=== PATIENT | male | born 1990 | race Caucasian/White ===

== ENCOUNTER 2022-06-20 09:13 | Emergency (ER) | payer MEDICARE, MEDICAID, SELFPAY ==
[2022-06-20 09:18] VITALS: BP 134/76; PULSE 84; RESP 18; TEMP 36.7; O2SAT 99
[2022-06-20] MEDS: Ketorolac 15 MG/ML VIAL IM (09:55)
[2022-06-20] MEDS: Dexamethasone 10 MG/ML VIAL IM (09:56)
--- NOTE | 2022-06-20 09:56 | ED.GENADUL_ITS ---
Discharge Plan Disposition Patient Disposition: Home Condition: Improving Discharge Details Chief Complaint: Nk/Back Pain Clinical Impression: Back pain Primary Care Provider: Unknown,Unknown ED Provider: Sergio Larson Home Meds and New Rx's Prescriptions: No Action acetaminophen [Tylenol] 325 mg Capsule 1,000 mg PO Q4H Discharge Instructions Instructions: Back Pain (ED) Additional Instructions: Please return tomorrow at 11 AM for check-in with radiology department for your MRI. You will follow-up immediately after MRI in the emergency department for your results. We have put you on a list for scheduling with [facility] negative you could order it is like a medical supply that is well [employer] she is complaining of her gallbladder out. Please return to the emergency department for any worsening symptoms versus MRI screening form reviewed 11 AM tomorrow met with dad and Medical Decision Making 31-year-old male presents with atraumatic lower back discomfort and intermittent paresthesia to left foot over the past year, denies definitive injury, no fevers chills or infectious symptoms, no midline spinal tenderness, patient is afebrile nontoxic full range of motion and full strength bilateral lower extremities, patient did have brief paresthesia sensation to perineum approximately 1 to 2 weeks ago lasting less than a couple of minutes, no further perineal symptoms, no bowel or bladder dysfunction, patient is able to ambulate no falls, high clinical suspicion for bulging lumbar disc no evidence of acute cauda equina at this time lower suspicion for spinal epidural abscess or hematoma given history and physical. Patient would benefit from MRI however today being a holiday MRIs not available, will connect patient to spine clinic at [facility] will arrange for outpatient imaging/return visit for MRI. Given home care instructions and return precautions. Analgesia anti-inflammatory. 11: 02 patient resting comfortably getting some relief from medications. Have discussed case with radiology department as MRIs not available today we will schedule him for 11 AM check-in at MRI tomorrow he will follow-up for results in the emergency department. Patient will also be given referral to spine clinic at [facility]. Given home care instructions and return precautions for worsening symptoms. Sign Out No HPI General Date/Time Provider Initiated Documentation: 06/20/22 09:14 . HPI Narrative: 32-year-old male presents with approximately 1 year of lower back discomfort and paresthesia/numbness to his left foot, denies any definitive traumatic injury however works in [employer] and is very active, denies bowel or bladder discomfort however did have a brief event of paresthesia involving a small portion of his perineum that lasted several minutes and resolved completely no current perineal symptoms. Related Data Home Medications Medication Instructions Recorded Confirmed acetaminophen 325 mg capsule 1,000 mg PO Q4H 06/20/22 06/20/22 (Tylenol) Allergies Allergy/AdvReac Type Severity Reaction Status Date / Time shellfish derived Allergy Severe Unverified 06/20/22 09:24 levetiracetam [From Keppra] Allergy Mild itching,hiv Unverified 11/15/12 10:58 es General Stated Complaint: Nk/Back Pain YANELY: 4 Review of Systems Narrative: Review of Systems Constitutional: negative Eyes: negative ENT: negative Cardiovascular: negative Respiratory: negative Gastrointestinal: negative : negative Musculoskeletal: negative Skin: negative Neurologic: Paresthesias Psych: negative PFSH All Active Problems (Updated 06/20/22 @ 11:07 by Sergio Larson MD) Back pain (Acute) Social History Smoking/Tobacco Use Status: Current every day Tobacco Type: cigarettes Smoking risk assessment performed?: Yes Alcohol Intake: former Drug use: Occasionally Substance use type: does not use Do you feel safe at home: Yes Do you feel safe in your relationship?: Yes Exam Narrative Exam Narrative: Physical Examination General: alert, awake, cooperative, resting comfortably, no acute distress HEENT: normocephalic, atraumatic; PERRL, EOM intact, conjunctiva normal; no nasal discharge; moist mucous membranes, oral and pharyngeal mucosa normal, tolerating secretions Neck: supple, trachea midline; full ROM Chest: normal to inspection Respiratory: normal respiratory effort, speaking in full sentences, clear to auscultation, no wheezing, rales or rhonchi Cardiac: regular rate, regular rhythm, S1S2 intact, no murmurs rubs or gallops GI: abdomen soft, non-tender, non-distended; no palpable mass or hepatosplenomegaly Back: No midline spinal tenderness Skin: no lesions, rashes or trauma appreciated Neuro: AAOx3, normal speech, moving all extremities; 5/5 strength bilateral lower extremities, sensation intact Extremities: Full range of motion bilateral lower extremities; reproduction of back discomfort with movement Psych: Appropriate mood and affect Course Vital Signs Vital signs: Vital Signs Temperature 36.7 C 06/20/22 09:18 Pulse 84 06/20/22 09:18 Respiratory Rate 18 06/20/22 09:18 Blood Pressure 134/76 06/20/22 09:18 Pulse Oximetry 99 06/20/22 09:18 Temperature 36.7 C 06/20/22 09:18 Pulse 84 06/20/22 09:18 Respiratory Rate 18 06/20/22 09:18 Respiratory Effort Non-Labored 06/20/22 09:21 Blood Pressure 134/76 06/20/22 09:18 Blood Pressure Position Supine 06/20/22 09:18 Pulse Oximetry 99 06/20/22 09:18 Oxygen Delivery Method Room Air 06/20/22 09:18 Oxygen Flow Rate 0 06/20/22 09:18 Pain Level 10 06/20/22 09:18
[2022-06-20] MEDS: Cyclobenzaprine 10 MG TAB PO (09:57)
[2022-06-20] MEDS: Lidocaine 5% Patch 1 PATCH TP (09:57)
--- NOTE | 2022-06-20 11:03 | NUR.NOTE ---
Nursing Note:REFFERAL TO CM FOR PCP AND SPINE CLINIC AT [facility]
--- NOTE | 2022-06-20 18:53 | NUR.NOTE ---
Requisition and MRI Protocol Sheet faxed to [facility] for MRI 06/21/22. Reason for test is back pain with L LE paresthesia.Nursing Note:
== END 2022-06-20 11:12 | disposition home or self-care (01) ==
PROVIDERS: Emergency Provider Emergency Medicine
DX: M54.50 Low back pain, unspecified (principal); M79.605 Pain in left leg; R20.2 Paresthesia of skin
CPT/HCPCS: 96372; 99284; 99283; J1100; J1885

== ENCOUNTER 2022-06-24 13:13 | Emergency (ER) | payer MEDICARE, MEDICAID, SELFPAY ==
--- NOTE | 2022-06-24 13:17 | ED.GENADUL_ITS ---
Discharge Plan Disposition Patient Disposition: Home Condition: Good Discharge Details Clinical Impression: Herniated lumbar intervertebral disc Primary Care Provider: Unknown,Unknown ED Provider: Ozzie Bedolla Home Meds and New Rx's Prescriptions: New prednisone 50 mg tablet 50 mg PO DAILY Qty: 5 0RF lidocaine [Lidoderm] 5 % adhesive patch,medicated 1 patch Topical Q24H Qty: 15 0RF cyclobenzaprine 10 mg tablet 10 mg PO TID Qty: 14 0RF No Action acetaminophen [Tylenol] 325 mg Capsule 1,000 mg PO Q4H Discharge Instructions Instructions: Lumbar Radiculopathy (ED) Additional Instructions: At this time the MRI shows evidence of a disc herniation with some pressure on some of the nerves. This can cause significant pain and take a fair bit of time to heal. I expect 1 to 2 months for potential resolution. In the meantime do not lift anything greater than 5 pounds for the next 2 weeks. Avoid any significant vigorous physical activity. Perform easy gentle regular activities at home without any significant bending or lifting. Please take the steroids as directed. You have been given a prescription for Lidoderm patch. If your insurance does not cover this you can get [id number] Lidoderm patches at 4% which are almost just as effective. Please take the Flexeril as directed but do not take it when driving or operating any vehicles or heavy machinery, swimming, taking long baths, or operating firearms. Please use a heating pad as often as possible on your back. Perform daily gentle stretches on your back. Please continue to take the Tylenol and Motrin. You can take 1000 mg of Tylenol every 6 hours and 600 mg of ibuprofen every 6 hours. If you notice any worsening of your symptoms, or any new symptoms such as vomiting, diarrhea, fever, chills, shortness of breath, chest pain, numbness or tingling in your groin or legs, weakness in your legs, loss of control for your bowels or bladder, or fainting , please return immediately to the emergency department for reevaluation. Please follow up with your primary care provider as soon as possible for reassessment and reevaluation. As always, it was a pleasure participating in your medical care today. We have placed a referral with our physical therapist and they will contact you for an appointment time. Additionally [facility] spine hauula would like you to call their office at [phone] after you completed the medications and still would like evaluation. Stand Alone Forms: Physical Therapy Referral Medical Decision Making This is a 32-year-old male who presented last night for atraumatic low back discomfort with intermittent paresthesias in the left foot over the past year. He did not recall any definitive injury. No fever or chills. No midline spinal tenderness on his exam last night. Because of the time and the holiday the patient was discharged with plan for MRI on an outpatient basis with ER follow-up. MRI was just performed, and the patient was brought back to the ER for further assessment. He has no complaints at this time is feeling well and is resting comfortably. Patient had no clinical evidence of cauda equina syndrome at time of discharge. MRI demonstrates large disc herniation at L5-S1, with extrusion of disc material impinging on the left-sided nerve roots. Exam was performed here and shows no signs of cauda equina syndrome. No evidence of an acute urinary retention or bowel or bladder incontinence. Patient is stable otherwise. Symptoms have been going on for quite some time. I contacted [facility] and discussed the case with neurosurgery Dr. Alcazar, she recommends steroids, muscle relaxants, NSAIDs, and physical therapy. She did give the clinic phone number for follow- up and recommends the patient call it if he has persistent symptoms after treatment. Patient at this time shows no evidence of acute life-threatening etiology requiring emergent surgical intervention. Neurosurgery does not see any additional need for emergent surgical intervention after review of the imaging. I have extensively reviewed the treatment plan and discharge instructions with the patient. I have addressed all patient concerns at this kira e. The patient was made aware of what symptoms to monitor for that would warrant a return to the emergency department. Discussed the plan with the patient, they demonstrate verbal understanding and agreement with our assessment and plan at this time. The documentation in this chart was dictated using [employer] dictation software. Please excuse any dictation errors. FINDINGS: Bones: The last intervertebral disc space is designated the L5/S1 level for the numbering purpose of this examination. The vertebral body heights are well maintained. Alignment is satisfactory. The marrow signal characteristics are unremarkable. Cord: The conus tip ends at the T12 level. It is of normal size and signal intensity. T12-L1: No disc herniations or bulges are present. No central spinal canal or ne ural foraminal stenosis. L1-2: No disc herniations or bulges are present. No central spinal canal or neural foraminal stenosis. L2-3: No disc herniations or bulges are present. No central spinal canal or neural foraminal stenosis. L3-4: No disc herniations or bulges are present. No central spinal canal or neural foraminal stenosis. L4-5: Minimal disc bulging. No central spinal canal or neural foraminal stenosis. L5-S1: Disc height is normal. Partial disc desiccation. Small endplate osteophytes. Large central disc protrusion with focal area of extruded disc material left paracentral, impinging on the adjacent nerve roots. No central spinal canal or neural foraminal stenosis. The visualized SI joints and sacrum are well maintained. Soft tissues: The paraspinal soft tissues are unremarkable. IMPRESSION: Large disc herniation at L5-S1 with extruded disc material impinging on left- sided nerve roots. Findings discussed with emergency department provider. Sign Out No HPI General Date/Time Provider Initiated Documentation: 06/24/22 13:17 . HPI Narrative: This is a 32-year-old male who presented last night for atraumatic low back discomfort with intermittent paresthesias in the left foot over the past year. He did not recall any definitive injury. No fever or chills. No midline spinal tenderness on his exam last night. Because of the time and the holiday the patient was discharged with plan for MRI on an outpatient basis with ER follow-up. MRI was just performed, and the patient was brought back to the ER for further assessment. He has no complaints at this time is feeling well and is resting comfortably. Related Data Home Medications Medication Instructions Recorded Confirmed acetaminophen 325 mg capsule 1,000 mg PO Q4H 06/20/22 06/20/22 (Tylenol) cyclobenzaprine 10 mg tablet 10 mg PO TID #14 tabs 06/24/22 lidocaine 5 % topical patch 1 patch topical Q24H #15 ea 06/24/22 (Lidoderm) prednisone 50 mg tablet 50 mg PO DAILY #5 tabs 06/24/22 Previous Rx's Medication Instructions Recorded cyclobenzaprine 10 mg tablet 10 mg PO TID #14 tabs 06/24/22 lidocaine 5 % topical patch 1 patch topical Q24H #15 ea 06/24/22 (Lidoderm) prednisone 50 mg tablet 50 mg PO DAILY #5 tabs 06/24/22 Allergies Allergy/AdvReac Type Severity Reaction Status Date / Time shellfish derived Allergy Severe Unverified 06/20/22 09:24 levetiracetam [From Keppra] Allergy Mild itching,hiv Unverified 11/15/12 10:58 es General YANELY: 4 Review of Systems All systems reviewed & are unremarkable except as noted in HPI and below PFSH All Active Problems (Updated 06/24/22 @ 14:05 by Ozzie Bedolla DO) Back pain (Acute) Herniated lumbar intervertebral disc (Acute) Social History Smoking/Tobacco Use Status: Current every day Tobacco Type: cigarettes Smoking risk assessment performed?: Yes Alcohol Intake: former Drug use: Occasionally Substance use type: does not use Do you feel safe at home: Yes Do you feel safe in your relationship?: Yes Exam Narrative Exam Narrative: 1.Const: Well-nourished, Well-developed, appearing stated age 2.Eyes: PERRL, no conjunctival injection, and symmetrical lids. 3.ENT: Atraumatic external nose and ears. Moist MM. Neck: Symmetric, trachea midline, No thyromegaly. 4.CVS: +S1/S2, No murmurs or gallops. Peripheral pulses 2+ and equal in all extremities. Brisk capillary refill in all extremities. 5.RESP: Unlabored respiratory effort. Clear to auscultation bilaterally. No wheezes rales or rhonchi 6.GI: Soft, Nontender/Nondistended, No hepatosplenomegaly. No guarding or rebound. 7.MSK: Normocephalic/Atraumatic, Extremities w/o deformity or ttp No cyanosis or clubbing, Normal movement of all extremities 8.Skin: Warm, Dry. No rashes or lesions. 9.Neuro: stake setter II-XII grossly intact. Sensation grossly intact, no focal neurologic deficits. 10.Psych: (AAO) x3. Appropriate mood and affect
[2022-06-24 13:33] VITALS: BP 108/68; PULSE 80; RESP 17; TEMP 36.1; O2SAT 98
== END 2022-06-24 14:18 | disposition home or self-care (01) ==
PROVIDERS: Emergency Provider Student in an Organized Health Care Education/Training Program
DX: M51.26 Other intervertebral disc displacement, lumbar region (principal)

== ENCOUNTER → 2022-06-24 14:05 | Outpatient (CLI) | payer MEDICARE, MEDICAID, SELFPAY ==
--- NOTE | 2022-06-24 | DI.MRI_ITS ---
Exam(s) MR LUMBAR SPINE WO EXAM: MR LUMBAR SPINE WO CLINICAL HISTORY: BACK PAIN, LEFT LOWER EXTREMITY PARESTHESIA. TECHNIQUE: Multiplanar multisequence MRI of the Lumbar spine was performed. COMPARISON: [facility] THORACIC SPINE from 11/15/2012 FINDINGS: Bones: The last intervertebral disc space is designated the L5/S1 level for the numbering purpose of this examination. The vertebral body heights are well maintained. Alignment is satisfactory. The ma rrow signal characteristics are unremarkable. Cord: The conus tip ends at the T12 level. It is of normal size and signal intensity. T12-L1: No disc herniations or bulges are present. No central spinal canal or neural foraminal stenos is. L1-2: No disc herniations or bulges are present. No central spinal canal or neural foraminal stenosis . L2-3: No disc herniations or bulges are present. No central spinal canal or neural foraminal stenosis . L3-4: No disc herniations or bulges are present. No central spinal canal or neural foraminal stenosis . L4-5: Minimal disc bulging. No central spinal canal or neural foraminal stenosis. L5-S1: Disc height is normal. Partial disc desiccation. Small endplate osteophytes. Large central disc protrusion with focal area of extruded disc material left paracentral, impinging on the adjacent nerve roots. No central spinal canal or neural foraminal stenosis. The visualized SI joints and sacrum are well maintained. Soft tissues: The paraspinal soft tissues are unremarkable. IMPRESSION: Large disc herniation at L5-S1 with extruded disc material impinging on left-sided nerve roots. Findings discussed with emergency department provider. DATA REPOSITORY:
== END ==
PROVIDERS: Visit Provider Emergency Medicine
DX: R20.2 Paresthesia of skin; M51.17 Intervertebral disc disorders with radiculopathy, lumbosacral region; M79.605 Pain in left leg
CPT/HCPCS: 72148